=== PATIENT | male | born 1990 | race Caucasian/White ===

== ENCOUNTER 2025-11-09 19:13 | Emergency (ER) | payer OTHER, BC ==
[~2025-11-09] VITALS: Ht 190.5 cm; Wt 88.0 kg
[2025-11-09] MEDS ORDERED: DIPHTH,PERTUSS(ACELL),TET VAC 0.5 ML SYRINGE IM ONE (20:00)
[2025-11-09 20:12] LABS: BLOOD/HGB, URINE NEGATIVE (Negative); KETONE, URINE NEGATIVE (Negative); LEUK ESTERASE, URINE NEGATIVE (negative); NITRITE, URINE NEGATIVE (negative)
[2025-11-09 20:25] LABS: AMPHETAMINES, URINE NEGATIVE (NEGATIVE); BARBITURATES, URINE NEGATIVE (NEGATIVE); BENZODIAZEPINE, URINE NEGATIVE (NEGATIVE); CANNABINOID, URINE POSITIVE (NEGATIVE); COCAINE, URINE NEGATIVE (NEGATIVE); ECSTASY, URINE NEGATIVE (NEGATIVE); FENTANYL, URINE NEGATIVE (NEGATIVE); METHADONE, URINE NEGATIVE (NEGATIVE); OPIATES, URINE NEGATIVE (NEGATIVE); OXYCODONE, URINE NEGATIVE (NEGATIVE); PHENCYCLIDINE, URINE NEGATIVE (NEGATIVE)
[2025-11-09 20:28] LABS: BASOPHILS 0.4 % (0.2-1.2); EOSINOPHILS 0.1 % (0.8-7.0); LYMPHOCYTES 7.7 % (21.8-53.1); MCH 28.5 PG (25.7-32.2); MCHC 34.2 g/dL (32.3-36.5); MCV 83.6 fL (79.0-92.2); MONOCYTES 7.6 % (5.3-12.2); NEUTROPHILS 84.0 % (34.0-67.9); RBC 5.36 M/uL (4.63-6.08)
[2025-11-09 20:32] LABS: ALCOHOL, MEDICAL 29.0 mg/dL (<3); ALT (SGPT) 30.0 U/L (14-59); AST (SGOT) 31.0 U/L (15-37); GLOMERULAR FILTRATION RATE,EST 118.0 mL/min (>60); PROTEIN, TOTAL 8.8 g/dL (6.4-8.2); UREA NITROGEN 13.0 mg/dL (7-18)
[2025-11-09 21:05] LABS: ABO A; ANTIBODY SCREEN NEGATIVE; RH POSITIVE
[2025-11-09] MEDS ORDERED: CYCLOBENZAPRINE10 MG PO (21:10)
[2025-11-09] MEDS ORDERED: CYCLOBENZAPRINE HCL 10 MG HOME.PACK PO ONE (21:15)
== END 2025-11-09 21:25 | disposition home or self-care (01) ==
LOC: ED 19:13 → EDBD 19:14 → ED 19:14
PROVIDERS: Family Medicine
DX: S01.81XA Laceration without foreign body of other part of head, initial encounter (principal); S16.1XXA Strain of muscle, fascia and tendon at neck level, initial encounter; Z88.0 Allergy status to penicillin; V89.2XXA Person injured in unspecified motor-vehicle accident, traffic, initial encounter
CPT/HCPCS: 12011; 36415; 70450; 71250; 72125; 80053; 80307; 81003; 85025; 86850; 86900; 86901; 90471; 90715; 99284-25; G0480